=== PATIENT | male | born 1990 | race Caucasian/White ===

== ENCOUNTER 2018-04-15 23:49 | Emergency (ER) | payer OTHER ==
[~2018-04-15] VITALS: Ht 165.1 cm; Wt 109.9 kg
[2018-04-16 00:06] VITALS: Ht 165.1 cm; Wt 109.9 kg
[2018-04-16 06:21] VITALS: BP 148/96
== END 2018-04-16 06:21 | disposition home or self-care (01) ==
LOC: ED 23:49
DX: S62.666B Nondisplaced fracture of distal phalanx of right little finger, initial encounter for open fracture (principal); W23.0XXA Caught, crushed, jammed, or pinched between moving objects, initial encounter; Y93.89 Activity, other specified; Y92.89 Other specified places as the place of occurrence of the external cause; Y99.8 Other external cause status
CPT/HCPCS: 90715; J0690; J2001; Q0092

== ENCOUNTER 2018-04-24 09:26 | Emergency (ER) | payer OTHER ==
[~2018-04-24] VITALS: Ht 165.1 cm; Wt 108.9 kg
[2018-04-24 09:37] VITALS: BP 147/100
== END 2018-04-24 10:02 | disposition home or self-care (01) ==
LOC: ED 09:26
DX: S61.216D Laceration without foreign body of right little finger without damage to nail, subsequent encounter (principal); X58.XXXD Exposure to other specified factors, subsequent encounter